=== PATIENT | male | born 1980 | race Caucasian/White ===

== ENCOUNTER 2016-08-20 11:03 | Emergency (ER) | payer OTHER | END 2016-08-20 13:16 | disposition home or self-care (01) | LOC: ER 11:03 | DX: M25.562 Pain in left knee (principal); G89.29 Other chronic pain; F17.220 Nicotine dependence, chewing tobacco, uncomplicated; Z79.899 Other long term (current) drug therapy; Z79.1 Long term (current) use of non-steroidal anti-inflammatories (NSAID); Z88.0 Allergy status to penicillin | CPT/HCPCS: 96372; 99282-25 ==